=== PATIENT | female | born 1980 | race Caucasian/White ===

== ENCOUNTER → 2020-06-05 | Day surgery (SDC) | payer BC ==
[2020-05-31 15:05] LABS: Basophils # (auto) 0 10 ^3/uL (0-0.2); Basophils % (auto) 0.5 % (0.0-2.0); Eosinophils # (auto) 0.1 10 ^3/uL (0-0.8); Eosinophils % (auto) 1.1 % (0.0-7.0); Hemoglobin 12.6 g/dL (12.2-16.2); Lymphocytes # (auto) 1.8 10 ^3/uL (0.4-5.4); Lymphocytes % (auto) 31.9 % (10.0-50.0); Mean Corpuscular Hgb Conc. 34.9 g/dL (32.0-36.0); Mean Corpuscular Volume 91.7 fL (80.0-100.0); Monocytes # (auto) 0.4 10 ^3/uL (0-1.3); Monocytes % (auto) 7.7 % (0.0-12.0); Neutrophils # (auto) 3.3 10 ^3/uL (1.6-8.6); Neutrophils % (auto) 58.8 % (37.0-80.0); Platelet Count (auto) 270 10^3/uL (140-450); Red Blood Cells 3.93 10^6/uL (4.0-5.20); Red Cell Distribution Width 12.9 % (11.8-14.3); White Blood Cell 5.7 10^3/uL (4.4-10.8)
[2020-05-31 15:22] LABS: INR 0.96 (0.9-1.15); Partial Thromboplastin Time 26.5 sec (23.0-31.2)
[~2020-06-05] VITALS: Ht 172.7 cm; Wt 68.0 kg
[~2020-06-05] MED LIST: LIDOCAINE VISCOUS 2% 15ML UD ONE
[2020-06-05] MEDS: diphenhdrAMINE HCL 50 MG/1 ML VL ONE ×2 (09:38→09:41)
[2020-06-05] MEDS: MIDAZOLAM HCL 5 MG/ML-1ML VIAL ONE ×2 (09:38→09:41)
[2020-06-05] MEDS: fentaNYL CITRATE 100 MCG/2 ML VL ONE ×2 (09:38→09:41)
[2020-06-05 10:20] VITALS: BP 95/61
== END | disposition home or self-care (01) ==
LOC: GI 08:56
PROVIDERS: ATTEND Internal Medicine Gastroenterology
DX: R10.13 Epigastric pain (principal); K44.9 Diaphragmatic hernia without obstruction or gangrene; K29.70 Gastritis, unspecified, without bleeding; Z98.890 Other specified postprocedural states; Z79.899 Other long term (current) drug therapy
CPT/HCPCS: 36415; 43239; 84702; 85025; 85610; 85730; 88305; 88342; J1200; J2250; J3010; J7030

== ENCOUNTER → 2020-08-03 | Day surgery (SDC) | payer BC ==
[2020-07-31 14:56] LABS: Basophils # (auto) 0 10 ^3/uL (0-0.2); Basophils % (auto) 0.7 % (0.0-2.0); Eosinophils # (auto) 0 10 ^3/uL (0-0.8); Eosinophils % (auto) 0.9 % (0.0-7.0); Hematocrit 36.8 % (36.0-46.0); Hemoglobin 12.7 g/dL (12.2-16.2); Lymphocytes # (auto) 1.8 10 ^3/uL (0.4-5.4); Lymphocytes % (auto) 34.7 % (10.0-50.0); Mean Corpuscular Hemoglobin 31.2 pg (28.0-32.0); Mean Corpuscular Hgb Conc. 34.4 g/dL (32.0-36.0); Mean Corpuscular Volume 90.7 fL (80.0-100.0); Monocytes # (auto) 0.4 10 ^3/uL (0-1.3); Monocytes % (auto) 6.8 % (0.0-12.0); Neutrophils % (auto) 56.9 % (37.0-80.0); Nucleated Red Blood Cells % 0.1 %; Platelet Count (auto) 249 10^3/uL (140-450); Red Blood Cells 4.06 10^6/uL (4.0-5.20); Red Cell Distribution Width 13.2 % (11.8-14.3); White Blood Cell 5.3 10^3/uL (4.4-10.8)
[2020-07-31 15:29] LABS: INR 0.99 (0.9-1.15); Partial Thromboplastin Time 27.5 sec (23.0-31.2)
[~2020-08-03] VITALS: Ht 172.7 cm; Wt 68.0 kg
[~2020-08-03] MED LIST changes: -LIDOCAINE VISCOUS 2% 15ML UD ONE; +fentaNYL CITRATE 100 MCG/2 ML VL ONE
[2020-08-03] MEDS: MIDAZOLAM HCL 5 MG/ML-1ML VIAL ONE ×3 (13:10→13:17)
[2020-08-03] MEDS: fentaNYL CITRATE 100 MCG/2 ML VL ONE ×2 (13:10→13:13)
[2020-08-03] MEDS: diphenhdrAMINE HCL 50 MG/1 ML VL ONE ×2 (13:10→13:13)
[2020-08-03 14:00] VITALS: BP 108/60
== END | disposition home or self-care (01) ==
LOC: GI 10:11
PROVIDERS: ATTEND Internal Medicine Gastroenterology
DX: R19.4 Change in bowel habit (principal); K63.89 Other specified diseases of intestine; K64.8 Other hemorrhoids; F17.200 Nicotine dependence, unspecified, uncomplicated; Z98.890 Other specified postprocedural states; Z79.899 Other long term (current) drug therapy; Z20.822 Contact with and (suspected) exposure to COVID-19
CPT/HCPCS: 36415; 45380; 81025; 84702; 85025; 85610; 85730; 88305; J1200; J2250; J3010; J7030; U0003; 99152